=== PATIENT | male | born 1995 | race African-American/Black ===

== ENCOUNTER 2017-02-04 12:08 | Emergency (ER) | payer SELFPAY ==
[2017-02-04 12:32] LABS: COLOR,URINE YELLOW (YELLOW)
[2017-02-04 12:33] LABS: APPEARANCE,URINE CLEAR (CLEAR)
[2017-02-04 12:34] LABS: OCCULT BLOOD,URINE TRACE-LYSED (NEGATIVE); PH URINE 5.5 (5.0 - 8.0); UROBILINOGEN URINE 0.2 Eu (0.2-1.0)
[2017-02-04 12:40] LABS: AMORPHOUS SEDIMENT,UR FEW (NEGATIVE)
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
[2017-02-04 12:51] VITALS: BP 138/72
== END 2017-02-04 12:43 | disposition home or self-care (01) ==
LOC: ED 12:08
DX: T14.90 Injury, unspecified (principal); V89.2XXA Person injured in unspecified motor-vehicle accident, traffic, initial encounter; Y93.9 Activity, unspecified; Y99.9 Unspecified external cause status
CPT/HCPCS: 81002; 99283; 99284